=== PATIENT | male | born 1950 ===

== ENCOUNTER 2017-11-10 14:45 | Emergency (ER) | payer MEDICARE, BC ==
--- NOTE | 2017-11-10 16:42 | ED ---
GI/ HPI - HPI Summary HPI Summary: 66 yr old male with no BM for 4 days. Denies abdominal pain, nausea, vomiting. He states he walks to the bathroom feeling like he needs to go,but he cannot. he gets spasms in the rectal area not able to go. Denies fever, chills. He has never had a colonoscopy. He has had right inguinal hernia surgery. He has no abdominal, scrotal or inguinal pain or swelling. No prior abdominal surgeries. He does not feel distended. - History of Current Complaint Chief Complaint: [facility] Time Seen by Provider: 11/10/17 16:10 Stated Complaint: CONSTIPATION Pain Intensity: 3 - Allergy/Home Medications Allergies/Adverse Reactions: Allergies Allergy/AdvReac Type Severity Reaction Status Date / Time No Known Allergies Allergy Verified 11/10/17 15:21 Home Medications: Home Medications Atorvastatin* [Lipitor*] 20 mg PO QPM 11/10/17 [History Confirmed 11/10/17] Warfarin Sodium [Coumadin] 6 mg PO SEE INSTRUCTIONS 11/10/17 [History Confirmed 11/10/17] Warfarin TAB(*) [Coumadin TAB(*)] 4 mg PO SEE INSTRUCTIONS 11/10/17 [History Confirmed 11/10/17] PMH/Surg Hx/FS Hx/Imm Hx - Surgical History Surgery Procedure, Year, and Place: open heart sx-valve replacement. single bypass. Hernia repair Infectious Disease History: No Infectious Disease History: Denies: Traveled Outside the [place] in Last 30 Days - Family History Known Family History: Positive: None - Social History Alcohol Use: None Substance Use Type: Reports: None Smoking Status (MU): Former Smoker Review of Systems Constitutional: Negative Eyes: Negative Positive: Other - constipation All Other Systems Reviewed And Are Negative: Yes Physical Exam Triage Information Reviewed: Yes Vital Signs On Initial Exam: Initial Vitals Temp Pulse Resp BP Pulse Ox 99.9 F 105 16 148/78 97 11/10/17 15:29 11/10/17 15:29 11/10/17 15:29 11/10/17 15:29 11/10/17 15:29 Vital Signs Reviewed: Yes Appearance: Positive: Well-Appearing, No Pain Distress Skin: Positive: Warm, Skin Color Reflects Adequate Perfusion Head/Face: Positive: Normal Head/Face Inspection Eyes: Positive: EOMI ENT: Positive: Normal ENT inspection Neck: Positive: Nontender Respiratory/Lung Sounds: Positive: Clear to Auscultation, Breath Sounds Present Cardiovascular: Positive: RRR. Negative: Murmur Abdomen Description: Positive: Nontender, Soft. Negative: Distended, Guarding Male Genital Exam: Positive: Normal Genitalia, No Hernia. Negative: Hernia Mass , Inguinal Tenderness, Scrotum Tenderness (R), Scrotum Tenderness (L), Testicular Tenderness (R), Testicular Tenderness (L) Musculoskeletal: Positive: Strength/ROM Intact Neurological: Positive: Sensory/Motor Intact, Alert, Oriented to Person Place, Time, CN Intact II-III Psychiatric: Positive: Normal - [place] Coma Scale Best Eye Response: 4 - Spontaneous Best Motor Response: 6 - Obeys Commands Best Verbal Response: 5 - Oriented Coma Scale Total: 15 Diagnostics - Vital Signs Vital Signs Temp Pulse Resp BP Pulse Ox 11/10/17 15:29 99.9 F 105 16 148/78 97 - Laboratory Lab Statement: Any lab studies that have been ordered have been reviewed, and results considered in the medical decision making process. - Radiology abdomen Xray Interpretation: Positive (See Comments) - stool throughout colon Radiology Interpretation Completed By: Radiologist GIGU Course/Dx - Course Course Of Treatment: 66 yr old with constipation and stool througout colon. Enema given here, and recommend mag citrate. If no results he should go to the ER for further care. ON discharge the patient verbalized he is going to the ER for his constipation. Enema here did not produce result of BM. - Diagnoses Provider Diagnoses: Constipation, Hypertension Discharge - Sign-Out/Discharge Documenting (check all that apply): Discharge/Admit/Transfer - Discharge Plan Condition: Good Disposition: HOME Patient Education Materials: Constipation (ED), Hypertension (ED) Referrals: Ninoska Guzmán MD [Primary Care Provider] - 1 Day Additional Instructions: Go to the ER this evening if still not able to move bowels well. supervisor finishing a bottle of magnesium citrate at the drug store and drink this. - Billing Disposition and Condition Condition: GOOD Disposition: Home
[2017-11-10] MEDS ORDERED: Sodium Phosphate ADULT ENEMA* 118 ml bottle PR ONE (16:46)
--- NOTE | 2017-11-10 16:52 | RAD ---
Indication: Open heart surgery, constipation. Flat plate of the abdomen demonstrates stool throughout the colon. Air-filled colon is noted. No dilated loops of bowel are noted. IMPRESSION: Fecal stasis without definite obstructive pattern.
[2017-11-10 18:14] VITALS: BP 157/84
== END 2017-11-10 18:13 | disposition home or self-care (01) ==
LOC: UCCORT 14:45
DX: K59.00 Constipation, unspecified (principal); I10 Essential (primary) hypertension
CPT/HCPCS: 74019; 99202; A9270-GY; G0463